=== PATIENT | male | born 1990 | race African-American/Black ===

== ENCOUNTER 2019-04-05 01:39 | Emergency (ER) | payer SELFPAY ==
[2019-04-05 02:04] VITALS: BP 129/71
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
[2019-04-05] MEDS: KETOROLAC TROMETHAMINE 30 MG/1ML VIAL IVP ONE (02:45)
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
[2019-04-05 06:16] LABS: BASOPHILS % 0.5 % (0.0-1.5)
[2019-04-05 06:17] LABS: eGFR (Non-African) > 60
== END 2019-04-05 03:27 | disposition home or self-care (01) ==
LOC: ED 01:39
DX: S16.1XXA Strain of muscle, fascia and tendon at neck level, initial encounter (principal); S29.012A Strain of muscle and tendon of back wall of thorax, initial encounter; V69.00XA Driver of heavy transport vehicle injured in collision with unspecified motor vehicles in nontraffic accident, initial encounter
CPT/HCPCS: 72125; 72128; 80053; 85025; 96374; 99283; 99284; J1885